=== PATIENT | male | born 1960 | race Two or more races ===

== ENCOUNTER 2024-10-23 23:55 | Inpatient (IN) | payer OTHER, MEDICAID ==
[~2024-10-23] VITALS: Ht 177.8 cm; Wt 60.5 kg
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
[2024-10-24] MEDS: HYDROmorphone HCL 2 MG/ML VL/or syr IM ONE (02:27)
[2024-10-24 02:44] LABS: Basophils # (auto) 0.1 10 ^3/uL (0-0.2); Basophils % (auto) 1.3 % (0.0-2.0); Eosinophils # (auto) 0.4 10 ^3/uL (0-0.8); Eosinophils % (auto) 8.9 % (0.0-7.0); Hematocrit 32.8 % (41.0-53.0); Hemoglobin 11.1 g/dL (13.5-17.5); Lymphocytes # (auto) 0.9 10 ^3/uL (0.4-5.4); Lymphocytes % (auto) 17.8 % (10.0-50.0); Mean Corpuscular Hemoglobin 30.6 pg (28.0-32.0); Mean Corpuscular Hgb Conc. 33.8 g/dL (32.0-36.0); Mean Corpuscular Volume 90.4 fL (80.0-100.0); Monocytes # (auto) 0.5 10 ^3/uL (0-1.3); Monocytes % (auto) 9.8 % (0.0-12.0); Neutrophils # (auto) 3.1 10 ^3/uL (1.6-8.6); Neutrophils % (auto) 62.2 % (37.0-80.0); Platelet Count (auto) 132 10^3/uL (140-450); Red Blood Cells 3.62 10^6/uL (4.5-5.90); Red Cell Distribution Width 13.6 % (11.8-14.3); White Blood Cell 4.9 10^3/uL (4.4-10.8)
[2024-10-24 03:03] LABS: Chloride 103 mmol/L (98-107); Sodium 137 mmol/L (136-145)
[2024-10-24 03:04] LABS: Anion Gap 11 (5-15); Carbon Dioxide 23 mmol/L (20-31)
[2024-10-24 03:09] LABS: BUN/Creatinine Ratio 10.6 (10.0-20.0); Blood Urea Nitrogen 12 mg/dL (9-23); Glucose 92 mg/dL (74-106)
[2024-10-24 03:37] LABS: Calcium 10.4 mg/dL (8.7-10.4)
[2024-10-24 05:15] VITALS: PULSE 80; RESP 16; O2SAT 95
[2024-10-24] MEDS ORDERED: ONDANSETRON HCL 4 MG/2 ML VIAL IV PRN (08:15)
[2024-10-24] MEDS ORDERED: HYDR-4564 PO (08:16)
[2024-10-24] MEDS ORDERED: FURO20TA4 PO (08:16)
[2024-10-24] MEDS ORDERED: PANT40T PO (08:16)
[2024-10-24] MEDS ORDERED: GABA-1250 PO (08:16)
[2024-10-24] MEDS ORDERED: SPIR25TA8 PO (08:16)
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
[2024-10-24] MEDS: HYDROcodone-ACET 10/325MG TAB PO ONE (08:28)
[2024-10-24] MEDS: FUROSEMIDE 20 MG TAB PO SCH (10:00)
[2024-10-24 10:44] LABS: Hepatitis A Ab IgM Negative; Hepatitis B Core IgM Negative (Negative); Hepatitis B Surface Antigen Negative (Negative); Hepatitis C Antibody Negative (Negative)
[2024-10-24] MEDS: PANTOPRAZOLE 40 MG TAB PO SCH (10:58)
[2024-10-24] MEDS: ENOXAPARIN SOD 40 MG/0.4 ML SYRINGE SC SCH (10:58)
[2024-10-24] MEDS: SPIRONOLACTONE 25 MG TAB PO SCH (10:59)
[2024-10-24] MEDS: HYDROmorphone HCL 2 MG TAB PO PRN (10:59)
[2024-10-24] MEDS: GABAPENTIN 300 MG CAP PO SCH (14:41)
[2024-10-24 15:57] LABS: Total Protein 6.7 g/dL (5.7-8.2)
[2024-10-24 16:16] LABS: Alkaline Phosphatase 108 U/L (46-116); Aspartate Aminotransferase 20 U/L (13-40)
[2024-10-24 16:19] LABS: INR 1.31 (0.9-1.15); Prothrombin Time 13.5 sec (9.3-11.8)
[2024-10-24 16:29] LABS: Alanine Aminotransferase < 9 U/L (7-40)
[2024-10-24] MEDS: HYDROcodone-ACET 10/325MG TAB PO PRN (17:19)
[2024-10-24 18:50] VITALS: BP 138/79; PULSE 84; RESP 18; TEMP 98.3; O2SAT 97
[2024-10-24 19:14] LABS: Urine Bacteria FEW /hpf (None Seen); Urine Blood Negative /uL (Negative); Urine Clarity Clear (Clear); Urine Color Yellow (Yellow); Urine Protein, UAD Negative (Negative); Urine Specific Gravity 1.018 (1.001-1.035); Urine Squamous Epithelial Cell None Seen /hpf (<5); Urine Urobilinogen 2 mg/dL (Negative); Urine WBC 1 /HPF (0-3); Urine pH 6.5 (5.0-9.0)
[2024-10-24 21:00] VITALS: BP 129/69; PULSE 79; RESP 18; TEMP 97.9; O2SAT 97
[2024-10-24 21:23] VITALS: BP 138/79; PULSE 79; PULSE 84; RESP 18; TEMP 98.3; O2SAT 97
[2024-10-24] MEDS ORDERED: HYDR-4798 PO (23:34)
[2024-10-25] VITALS (8 sets, daily range): BP systolic 115–144; BP diastolic 64–79; PULSE 74–86; RESP 17–18; TEMP 97.7–98.5; O2SAT 95–97
[2024-10-25 06:36] LABS: Albumin 3.6 g/dL (3.2-4.8); Alkaline Phosphatase 99 U/L (46-116); Anion Gap 9 (5-15); Aspartate Aminotransferase 22 U/L (13-40); BUN/Creatinine Ratio 8.6 (10.0-20.0); Blood Urea Nitrogen 10 mg/dL (9-23); Calcium 10.3 mg/dL (8.7-10.4); Carbon Dioxide 21 mmol/L (20-31); Chloride 104 mmol/L (98-107); Potassium 4.5 mmol/L (3.5-5.1); Total Protein 7.1 g/dL (5.7-8.2)
[2024-10-25 06:38] LABS: Alanine Aminotransferase < 9 U/L (7-40); Glucose 114 mg/dL (74-106); Sodium 134 mmol/L (136-145)
[2024-10-25 08:59] LABS: Basophils # (auto) 0.1 10 ^3/uL (0-0.2); Basophils % (auto) 1.6 % (0.0-2.0); Eosinophils # (auto) 0.3 10 ^3/uL (0-0.8); Eosinophils % (auto) 9.3 % (0.0-7.0); Hematocrit 34.5 % (41.0-53.0); Hemoglobin 11.5 g/dL (13.5-17.5); Lymphocytes # (auto) 0.8 10 ^3/uL (0.4-5.4); Lymphocytes % (auto) 20.2 % (10.0-50.0); Mean Corpuscular Hemoglobin 30.9 pg (28.0-32.0); Mean Corpuscular Hgb Conc. 33.3 g/dL (32.0-36.0); Mean Corpuscular Volume 92.8 fL (80.0-100.0); Monocytes # (auto) 0.4 10 ^3/uL (0-1.3); Monocytes % (auto) 10.9 % (0.0-12.0); Neutrophils # (auto) 2.2 10 ^3/uL (1.6-8.6); Nucleated Red Blood Cells % 0.1 %; Platelet Count (auto) 109 10^3/uL (140-450); Red Blood Cells 3.72 10^6/uL (4.5-5.90); Red Cell Distribution Width 14.2 % (11.8-14.3); White Blood Cell 3.8 10^3/uL (4.4-10.8)
--- NOTE | 2024-10-25 09:51 | DVHPN2 ---
Subjective Patient continues to report having chronic neck and back pain as well as left hand pain. Reviewed: Care Plan, H&P, Labs, Medications Changes from previous H/P or p: No Changes General: Per HPI Musculoskeletal: other (Body pain), back pain Objective Vitals Vital Signs Date Time Temp Pulse Resp B/P (MAP) Pulse Ox O2 Delivery O2 Flow Rate FiO2 10/25/24 08:30 98.5 74 18 117/64 (81) 96 98.5 10/24/24 21:23 Room Air* 0 21 Intake/Output Intake and Output 10/25/24 07:00 Intake Total 250 ml Output Total 800 ml Balance -550 ml Intake Oral 250 ml Output Urine Total 800 ml General Appearance: Alert, Oriented X3, Cooperative, mild distress HEENT: Atraumatic, PERRLA Lungs: Clear to auscultation, Normal air movement Cardiovascular: Normal S1, Normal S2 Abdomen: Normal bowel sounds, Soft, No tenderness, No hepatospenomegaly, No masses Musculoskeletal: Normal sensory function, Normal motor function Neuro: Normal speech Skin: Dry, Intact Psych/Mental Status: Mental status NL, Mood NL Medications Current Medications Medications Dose Ordered Sig/Malvin Route Start Time Stop Time Status Last Admin Dose Admin Ondansetron HCl 4 mg Q4HP PRN IV 10/24/24 08:15 Furosemide 20 mg DAILY PO 10/24/24 10:00 Gabapentin 300 mg TID PO 10/24/24 14:00 10/25/24 05:11 300 MG Hydromorphone HCl 2 mg [id number] PRN PO 10/24/24 08:15 10/25/24 06:05 2 MG Pantoprazole Sodium 40 mg DAILY PO 10/24/24 10:00 10/25/24 09:10 40 MG Spironolactone 25 mg BIDD PO 10/24/24 10:00 10/25/24 05:12 25 MG Acetaminophen/ Hydrocodone Bitart 1 tab Q4HP PRN PO 10/24/24 08:30 10/25/24 09:10 1 TAB Laboratory Results Laboratory Tests 10/25/24 05:50 10/25/24 08:33 Chemistry Test 10/24/24 15:25 10/25/24 05:50 Total Protein 6.7 g/dL (5.7-8.2) 7.1 g/dL (5.7-8.2) Albumin 3.6 g/dL (3.2-4.8) Calcium Level 10.3 mg/dL (8.7-10.4) Coagulation Test 10/24/24 15:25 Prothrombin Time 13.5 sec (9.3-11.8) H Prothrombin Time INR 1.31 (0.9-1.15) H LFT Test 10/24/24 15:25 10/25/24 05:50 Alanine Aminotransferase (ALT) < 9 U/L (7-40) < 9 U/L (7-40) Alkaline Phosphatase 108 U/L (46-116) 99 U/L (46-116) Aspartate Amino Transferase (AST) 20 U/L (13-40) 22 U/L (13-40) Total Bilirubin 1.0 mg/dL (0.2-1.0) 1.0 mg/dL (0.2-1.0) Urinalysis Test 10/24/24 16:59 Urine Color Yellow (Yellow) Urine Clarity Clear (Clear) Urine pH 6.5 (5.0-9.0) Urine Specific [place] 1.018 (1.001-1.035) Urine Protein Negative (Negative) Urine Ketones Trace (Negative) Urine Blood Negative /uL (Negative) Urine Nitrite Negative (Negative) Urine Bilirubin Negative (Negative) Urine Urobilinogen 2 mg/dL (Negative) H Urine Leukocyte Esterase Negative /uL (Negative) Urine RBC <1 /hpf (0 - 3) Urine Microscopic WBC 1 /HPF (0-3) Urine Squamous Epithelial Cells None seen /hpf (<5) Urine Bacteria Few /hpf (None Seen) H Urine Glucose Normal mg/dL (Normal) Labs and/or images reviewed: Labs reviewed by me, Image(s) reviewed by me Assessment/Plan Assessment/Plan Impression: -chronic neck and back pain -cachexia -left hand fracture,? -pain seeking behavior with chronic narcotic use Plan: Social service consultation for assistance with discharge planning Pain management PT evaluation Total time spent with patient discussing and formulating plan of care: 35 minutes. This medical document was created using an electronic medical record system with [employer] system. Although this document has been carefully reviewed, there may still be some phonetic and typographical errors. These areas are purely typographical due to imperfections of the software programs, and do not reflect any compromise in the patient's medical care. Plan discussed with: Patient, Other (RN) My Orders Orders - NORBERTO HURT NP Procedure Category Date Status Time * [employer] Attendant CONS 10/25/24 Verified Consult Pt Request For Service PT 10/25/24 Verified 09:47 Date of Service: Oct 25, 2024 Billing Provider: NORBERTO HURT NP Common Visit Codes: [id number] INP/OBS CARE(HIGH) NORBERTO HURT NP Oct 25, 2024 09:51
[2024-10-25 15:50] LABS: Amphetamine Screen, Urine Neg (NEGATIVE); Barbiturate Scree,Urine Neg (NEGATIVE); Benzodiazephine Screen, Urine Neg (NEGATIVE); Cannabinoid Screen, Urine Neg (NEGATIVE); Cocaine Screen, Urine Neg (NEGATIVE); Opiate Scree,Urine Pos (NEGATIVE); Phencyclidine Screen, Urine Neg (NEGATIVE)
[2024-10-26] VITALS (7 sets, daily range): BP systolic 100–131; BP diastolic 57–70; PULSE 75–83; RESP 16–18; TEMP 97.9–98.6; O2SAT 94–96
[2024-10-26] MEDS: OXYCODONE W/ ACETAMINOPHEN 5/325MG TABLET PO PRN (10:47)
--- NOTE | 2024-10-26 15:50 | DVHPN2 ---
Subjective Patient continues to report having chronic neck and back pain as well as left hand pain. Reviewed: Care Plan, H&P, Labs, Medications Changes from previous H/P or p: No Changes General: Per HPI Musculoskeletal: other (Body pain), back pain Objective Vitals Vital Signs Date Time Temp Pulse Resp B/P (MAP) Pulse Ox O2 Delivery O2 Flow Rate FiO2 10/26/24 13:30 98.1 80 17 115/65 (82) 96 98.1 10/26/24 08:30 Room Air* 0 21 Intake/Output Intake and Output 10/26/24 07:00 Intake Total 1490 ml Output Total 1000 ml Balance 490 ml Intake Oral 1490 ml Output Urine Total 1000 ml General Appearance: Alert, Oriented X3, Cooperative, mild distress HEENT: Atraumatic, PERRLA Lungs: Clear to auscultation, Normal air movement Cardiovascular: Normal S1, Normal S2 Abdomen: Normal bowel sounds, Soft, No tenderness, No hepatospenomegaly, No masses Musculoskeletal: Normal sensory function, Normal motor function Neuro: Normal speech Skin: Dry, Intact Psych/Mental Status: Mental status NL, Mood NL Medications Current Medications Medications Dose Ordered Sig/Malvin Route Start Time Stop Time Status Last Admin Dose Admin Ondansetron HCl 4 mg Q4HP PRN IV 10/24/24 08:15 Furosemide 20 mg DAILY PO 10/24/24 10:00 Gabapentin 300 mg TID PO 10/24/24 14:00 10/26/24 13:40 300 MG Pantoprazole Sodium 40 mg DAILY PO 10/24/24 10:00 10/26/24 08:27 40 MG Spironolactone 25 mg BIDD PO 10/24/24 10:00 10/26/24 05:12 25 MG Acetaminophen/ Hydrocodone Bitart 1 tab Q4HP PRN PO 10/24/24 08:30 10/26/24 15:32 1 TAB Oxycodone/ Acetaminophen 2 tab Q8HPRN PRN PO 10/26/24 10:30 10/26/24 10:47 2 TAB Mupirocin 1 applic BID EACHNOSTRI 10/26/24 22:00 10/31/24 21:59 UNV Laboratory Results Laboratory Tests 10/25/24 05:50 10/25/24 08:33 Urinalysis Test 10/24/24 16:59 Urine Color Yellow (Yellow) Urine Clarity Clear (Clear) Urine pH 6.5 (5.0-9.0) Urine Specific [place] 1.018 (1.001-1.035) Urine Protein Negative (Negative) Urine Ketones Trace (Negative) Urine Blood Negative /uL (Negative) Urine Nitrite Negative (Negative) Urine Bilirubin Negative (Negative) Urine Urobilinogen 2 mg/dL (Negative) H Urine Leukocyte Esterase Negative /uL (Negative) Urine RBC <1 /hpf (0 - 3) Urine Microscopic WBC 1 /HPF (0-3) Urine Squamous Epithelial Cells None seen /hpf (<5) Urine Bacteria Few /hpf (None Seen) H Urine Glucose Normal mg/dL (Normal) Microbiology Microbiology Date/Time Source Procedure Growth Status 10/24/24 21:30 Nose MRSA Screen - Final Methicillin Resistant S.aureus Complete Labs and/or images reviewed: Labs reviewed by me, Image(s) reviewed by me Assessment/Plan Assessment/Plan Impression: -chronic neck and back pain -cachexia -left hand fracture,? -pain seeking behavior with chronic narcotic use Plan: Events: Patient now complaining of deformity to his back. Discussed with the patient that he has multiple scars with the patient reporting that he was spinal surgery. We will continue to monitor. Possibly order CT scan if it continues to bother him. Social service consultation for snf placement. Pain management PT evaluation Total time spent with patient discussing and formulating plan of care: 35 minutes. This medical document was created using an electronic medical record system with [employer] dictation system. Although this document has been carefully reviewed, there may still be some phonetic and typographical errors. These areas are purely typographical due to imperfections of the software programs, and do not reflect any compromise in the patient's medical care. Plan discussed with: Patient, Other (RN) My Orders Orders - NORBERTO HURT NP Procedure Category Date Status Time Oxycodone W/ Acet PHA 10/26/24 In Process 5/325mg Tab (Percocet 10:30 * Private Security Guard CONS 10/26/24 Transmitted Consult Mupirocin 2% Oint PHA 10/26/24 Logged Mrsa Nares (Bactroban 22:00 Date of Service: Oct 26, 2024 Billing Provider: NORBERTO HURT NP Common Visit Codes: [id number] INP/OBS CARE(HIGH) NORBERTO HURT RN MED SURG Oct 26, 2024 15:50
[2024-10-26] MEDS: MUPIROCIN 2% OINT 15gm or 22gm FOR MRSA NARES EACHNOSTRI SCH (22:35)
[2024-10-27] VITALS (7 sets, daily range): BP systolic 100–132; BP diastolic 60–77; PULSE 76–90; RESP 16–20; TEMP 97.9–98.7; O2SAT 94–96
--- NOTE | 2024-10-27 13:18 | DVHPN2 ---
Subjective Patient continues to report having chronic neck and back pain as well as left hand pain. Reviewed: Care Plan, H&P, Labs, Medications Changes from previous H/P or p: No Changes General: Per HPI Musculoskeletal: other (Body pain), back pain Objective Vitals Vital Signs Date Time Temp Pulse Resp B/P (MAP) Pulse Ox O2 Delivery O2 Flow Rate FiO2 10/27/24 10:00 121/70 10/27/24 09:00 97.9 76 16 95 97.9 10/27/24 08:00 Room Air* 0 21 Intake/Output Intake and Output 10/27/24 07:00 Intake Total 1460 ml Output Total 1400 ml Balance 60 ml Intake Oral 1460 ml Output Urine Total 1400 ml General Appearance: Alert, Oriented X3, Cooperative, mild distress HEENT: Atraumatic, PERRLA Lungs: Clear to auscultation, Normal air movement Cardiovascular: Normal S1, Normal S2 Abdomen: Normal bowel sounds, Soft, No tenderness, No hepatospenomegaly, No masses Musculoskeletal: Normal sensory function, Normal motor function Neuro: Normal speech Skin: Dry, Intact Psych/Mental Status: Mental status NL, Mood NL Medications Current Medications Medications Dose Ordered Sig/Malvin Route Start Time Stop Time Status Last Admin Dose Admin Ondansetron HCl 4 mg Q4HP PRN IV 10/24/24 08:15 Furosemide 20 mg DAILY PO 10/24/24 10:00 Gabapentin 300 mg TID PO 10/24/24 14:00 10/27/24 05:25 300 MG Pantoprazole Sodium 40 mg DAILY PO 10/24/24 10:00 10/27/24 10:14 40 MG Spironolactone 25 mg BIDD PO 10/24/24 10:00 10/27/24 05:25 25 MG Acetaminophen/ Hydrocodone Bitart 1 tab Q4HP PRN PO 10/24/24 08:30 10/27/24 13:13 1 TAB Oxycodone/ Acetaminophen 2 tab Q8HPRN PRN PO 10/26/24 10:30 10/26/24 10:47 2 TAB Mupirocin 1 applic BID EACHNOSTRI 10/26/24 22:00 10/31/24 21:59 10/27/24 10:00 1 APPLIC Laboratory Results Laboratory Tests 10/25/24 05:50 10/25/24 08:33 Urinalysis Test 10/24/24 16:59 Urine Color Yellow (Yellow) Urine Clarity Clear (Clear) Urine pH 6.5 (5.0-9.0) Urine Specific [place] 1.018 (1.001-1.035) Urine Protein Negative (Negative) Urine Ketones Trace (Negative) Urine Blood Negative /uL (Negative) Urine Nitrite Negative (Negative) Urine Bilirubin Negative (Negative) Urine Urobilinogen 2 mg/dL (Negative) H Urine Leukocyte Esterase Negative /uL (Negative) Urine RBC <1 /hpf (0 - 3) Urine Microscopic WBC 1 /HPF (0-3) Urine Squamous Epithelial Cells None seen /hpf (<5) Urine Bacteria Few /hpf (None Seen) H Urine Glucose Normal mg/dL (Normal) Microbiology Microbiology Date/Time Source Procedure Growth Status 10/24/24 21:30 Nose MRSA Screen - Final Methicillin Resistant S.aureus Complete Labs and/or images reviewed: Labs reviewed by me, Image(s) reviewed by me Assessment/Plan Assessment/Plan Impression: -chronic neck and back pain -cachexia -left hand fracture,? -pain seeking behavior with chronic narcotic use Plan: Events: No events overnight. Social service consultation for snf placement. Pain management PT evaluation Total time spent with patient discussing and formulating plan of care: 35 minutes. This medical document was created using an electronic medical record system with [employer] dictation system. Although this document has been carefully reviewed, there may still be some phonetic and typographical errors. These areas are purely typographical due to imperfections of the software programs, and do not reflect any compromise in the patient's medical care. Plan discussed with: Patient, Other (RN) My Orders Orders - NORBERTO HURT NP Procedure Category Date Status Time Mupirocin 2% Oint PHA 10/26/24 In Process Mrsa Nares (Bactroban 22:00 * Assistant To [employer] [facility] 10/27/24 Transmitted Consult Date of Service: Oct 27, 2024 Billing Provider: NORBERTO HURT NP Common Visit Codes: [id number] INP/OBS CARE(HIGH) NORBERTO HURT NP Oct 27, 2024 13:18
[2024-10-28 01:00] VITALS: BP 116/68; PULSE 82; RESP 19; TEMP 97.8; O2SAT 94
[2024-10-28 05:00] VITALS: BP 114/75; PULSE 87; RESP 18; TEMP 97.6; O2SAT 96
[2024-10-28 09:00] VITALS: BP 126/75; PULSE 89; RESP 16; TEMP 98; O2SAT 94
[2024-10-28 13:00] VITALS: BP 110/78; PULSE 102; RESP 18; TEMP 97.9; O2SAT 94
--- NOTE | 2024-10-28 15:13 | DVHPN2 ---
Subjective Patient was somewhat withdrawn today. Reviewed: Care Plan, H&P, Labs, Medications Changes from previous H/P or p: Changes General: Per HPI Musculoskeletal: other (Body pain), back pain Objective Vitals Vital Signs Date Time Temp Pulse Resp B/P (MAP) Pulse Ox O2 Delivery O2 Flow Rate FiO2 10/28/24 13:00 97.9 102 18 110/78 (89) 94 97.9 10/28/24 08:00 Room Air* 0 21 Intake/Output Intake and Output 10/28/24 07:00 Intake Total 714 ml Output Total 500 ml Balance 214 ml Intake Oral 714 ml Output Urine Total 500 ml # Voids 3 General Appearance: Alert, Oriented X3, Cooperative, mild distress HEENT: Atraumatic, PERRLA Lungs: Clear to auscultation, Normal air movement Cardiovascular: Normal S1, Normal S2 Abdomen: Normal bowel sounds, Soft, No tenderness, No hepatospenomegaly, No masses Musculoskeletal: Normal sensory function, Normal motor function Neuro: Normal speech Skin: Dry, Intact Psych/Mental Status: Mental status NL, Mood NL Medications Current Medications Medications Dose Ordered Sig/Malvin Route Start Time Stop Time Status Last Admin Dose Admin Ondansetron HCl 4 mg Q4HP PRN IV 10/24/24 08:15 Furosemide 20 mg DAILY PO 10/24/24 10:00 Gabapentin 300 mg TID PO 10/24/24 14:00 10/28/24 14:06 300 MG Pantoprazole Sodium 40 mg DAILY PO 10/24/24 10:00 10/28/24 09:02 40 MG Spironolactone 25 mg BIDD PO 10/24/24 10:00 10/28/24 06:05 25 MG Acetaminophen/ Hydrocodone Bitart 1 tab Q4HP PRN PO 10/24/24 08:30 10/28/24 06:05 1 TAB Oxycodone/ Acetaminophen 2 tab Q8HPRN PRN PO 10/26/24 10:30 10/26/24 10:47 2 TAB Mupirocin 1 applic BID EACHNOSTRI 10/26/24 22:00 10/31/24 21:59 10/28/24 09:03 1 APPLIC Laboratory Results Laboratory Tests 10/25/24 05:50 10/25/24 08:33 Urinalysis Test 10/24/24 16:59 Urine Color Yellow (Yellow) Urine Clarity Clear (Clear) Urine pH 6.5 (5.0-9.0) Urine Specific [place] 1.018 (1.001-1.035) Urine Protein Negative (Negative) Urine Ketones Trace (Negative) Urine Blood Negative /uL (Negative) Urine Nitrite Negative (Negative) Urine Bilirubin Negative (Negative) Urine Urobilinogen 2 mg/dL (Negative) H Urine Leukocyte Esterase Negative /uL (Negative) Urine RBC <1 /hpf (0 - 3) Urine Microscopic WBC 1 /HPF (0-3) Urine Squamous Epithelial Cells None seen /hpf (<5) Urine Bacteria Few /hpf (None Seen) H Urine Glucose Normal mg/dL (Normal) Microbiology Microbiology Date/Time Source Procedure Growth Status 10/24/24 21:30 Nose MRSA Screen - Final Methicillin Resistant S.aureus Complete Labs and/or images reviewed: Labs reviewed by me, Image(s) reviewed by me Assessment/Plan Assessment/Plan Impression: -chronic neck and back pain -cachexia -left hand fracture,? -pain seeking behavior with chronic narcotic use Plan: Events: Patient was noted to be somewhat withdrawn today by nursing staff and with my assessment. -repeat BMP, CBC, UA, ammonia level Social service consultation for snf placement. Pain management PT evaluation Total time spent with patient discussing and formulating plan of care: 35 minutes. This medical document was created using an electronic medical record system with [employer] dictation system. Although this document has been carefully reviewed, there may still be some phonetic and typographical errors. These areas are purely typographical due to imperfections of the software programs, and do not reflect any compromise in the patient's medical care. Plan discussed with: Patient, Other (RN) My Orders Orders - NORBERTO HURT NP Procedure Category Date Status Time Basic Metabolic Panel LAB 10/28/24 Transmitted 15:10 Complete Blood Count LAB 10/28/24 Transmitted 15:10 Urinalysis LAB 10/28/24 Transmitted 15:10 Ammonia LAB 10/28/24 Transmitted 15:10 Date of Service: Oct 28, 2024 Billing Provider: NORBERTO HURT NP Common Visit Codes: [id number] INP/OBS CARE(HIGH) NORBERTO HURT NP Oct 28, 2024 15:13
[2024-10-28 16:35] LABS: Basophils # (auto) 0 10 ^3/uL (0-0.2); Basophils % (auto) 0.7 % (0.0-2.0); Eosinophils # (auto) 0.2 10 ^3/uL (0-0.8); Eosinophils % (auto) 5.1 % (0.0-7.0); Hematocrit 38.8 % (41.0-53.0); Hemoglobin 12.5 g/dL (13.5-17.5); Lymphocytes # (auto) 0.7 10 ^3/uL (0.4-5.4); Lymphocytes % (auto) 15.1 % (10.0-50.0); Mean Corpuscular Hemoglobin 29.6 pg (28.0-32.0); Mean Corpuscular Hgb Conc. 32.3 g/dL (32.0-36.0); Mean Corpuscular Volume 91.8 fL (80.0-100.0); Monocytes # (auto) 0.6 10 ^3/uL (0-1.3); Monocytes % (auto) 12.5 % (0.0-12.0); Neutrophils # (auto) 3.2 10 ^3/uL (1.6-8.6); Neutrophils % (auto) 66.6 % (37.0-80.0); Nucleated Red Blood Cells % 0.1 %; Platelet Count (auto) 149 10^3/uL (140-450); Red Blood Cells 4.23 10^6/uL (4.5-5.90); Red Cell Distribution Width 14.1 % (11.8-14.3); White Blood Cell 4.9 10^3/uL (4.4-10.8)
[2024-10-28 16:55] LABS: Chloride 105 mmol/L (98-107); Potassium 4.2 mmol/L (3.5-5.1); Sodium 138 mmol/L (136-145)
[2024-10-28 16:56] LABS: Anion Gap 10 (5-15); Carbon Dioxide 23 mmol/L (20-31)
[2024-10-28 17:00] VITALS: BP 149/84; PULSE 97; RESP 18; TEMP 98; O2SAT 96
[2024-10-28 17:02] LABS: BUN/Creatinine Ratio 12.4 (10.0-20.0); Blood Urea Nitrogen 16 mg/dL (9-23)
[2024-10-28 17:22] LABS: Calcium 10.6 mg/dL (8.7-10.4); Glucose 123 mg/dL (74-106)
[2024-10-28] MEDS: LACTULOSE 20Gm/30ML SOLN PO ONE (18:48)
[2024-10-28 21:00] VITALS: BP 123/71; PULSE 85; RESP 18; TEMP 97.9; O2SAT 95
[2024-10-28 21:31] LABS: Urine Bacteria None Seen /hpf (None Seen)
[2024-10-28 21:55] LABS: Urine Blood Negative /uL (Negative); Urine Clarity Clear (Clear); Urine Color Light-Yellow (Yellow); Urine Hyaline Cast FEW /lpf (0 - 2); Urine Mucus FEW (None Seen); Urine Protein, UAD Negative (Negative); Urine Specific Gravity 1.018 (1.001-1.035); Urine Squamous Epithelial Cell FEW /hpf (<5); Urine Urobilinogen Normal (Negative); Urine WBC 1 /HPF (0-3)
[2024-10-29 01:00] VITALS: BP 109/65; PULSE 84; RESP 18; TEMP 98; O2SAT 96
[2024-10-29 05:00] VITALS: BP 107/68; PULSE 82; RESP 18; TEMP 97.8; O2SAT 97
[2024-10-29 09:00] VITALS: BP 109/69; PULSE 80; RESP 17; TEMP 98.1; O2SAT 93
[2024-10-29] MEDS: LACTULOSE 20Gm/30ML SOLN PO SCH (12:06)
--- NOTE | 2024-10-29 12:53 | DVHPN2 ---
Subjective Patient more alert today. Reviewed: Care Plan, H&P, Labs, Medications Changes from previous H/P or p: Changes General: Per HPI Musculoskeletal: other (Body pain), back pain Objective Vitals Vital Signs Date Time Temp Pulse Resp B/P (MAP) Pulse Ox O2 Delivery O2 Flow Rate FiO2 10/29/24 09:00 98.1 80 17 109/69 (82) 93 98.1 10/29/24 08:00 Room Air* 0 21 Intake/Output Intake and Output 10/29/24 07:00 Intake Total 780 ml Output Total 550 ml Balance 230 ml Intake Oral 780 ml Output Urine Total 550 ml # Voids 1 # Bowel Movements 2 General Appearance: Alert, Oriented X3, Cooperative, mild distress HEENT: Atraumatic, PERRLA Lungs: Clear to auscultation, Normal air movement Cardiovascular: Normal S1, Normal S2 Abdomen: Normal bowel sounds, Soft, No tenderness, No hepatospenomegaly, No masses Musculoskeletal: Normal sensory function, Normal motor function Neuro: Normal speech Skin: Dry, Intact Psych/Mental Status: Mental status NL, Mood NL Medications Current Medications Medications Dose Ordered Sig/Malvin Route Start Time Stop Time Status Last Admin Dose Admin Ondansetron HCl 4 mg Q4HP PRN IV 10/24/24 08:15 Furosemide 20 mg DAILY PO 10/24/24 10:00 Gabapentin 300 mg TID PO 10/24/24 14:00 10/29/24 06:13 300 MG Pantoprazole Sodium 40 mg DAILY PO 10/24/24 10:00 10/29/24 09:25 40 MG Spironolactone 25 mg BIDD PO 10/24/24 10:00 10/29/24 06:13 25 MG Acetaminophen/ Hydrocodone Bitart 1 tab Q4HP PRN PO 10/24/24 08:30 10/29/24 11:57 1 TAB Oxycodone/ Acetaminophen 2 tab Q8HPRN PRN PO 10/26/24 10:30 10/26/24 10:47 2 TAB Mupirocin 1 applic BID EACHNOSTRI 10/26/24 22:00 10/31/24 21:59 10/29/24 09:26 1 APPLIC Lactulose 30 ml BID PO 10/29/24 11:45 10/29/24 12:06 30 ML Laboratory Results Laboratory Tests 10/28/24 16:17 Chemistry Test 10/28/24 16:17 Calcium Level 10.6 mg/dL (8.7-10.4) H Urinalysis Test 10/28/24 19:20 Urine Color Light-yellow (Yellow) Urine Clarity Clear (Clear) Urine pH 7.0 (5.0-9.0) Urine Specific [place] 1.018 (1.001-1.035) Urine Protein Negative (Negative) Urine Ketones Negative (Negative) Urine Blood Negative /uL (Negative) Urine Nitrite Negative (Negative) Urine Bilirubin Negative (Negative) Urine Urobilinogen Normal mg/dL (Negative) Urine Leukocyte Esterase Negative /uL (Negative) Urine RBC 10 /hpf (0 - 3) Urine Microscopic WBC 1 /HPF (0-3) Urine Squamous Epithelial Cells Few /hpf (<5) Urine Bacteria None seen /hpf (None Seen) Urine Hyaline Casts Few /lpf (0 - 2) Urine Mucus Few (None Seen) Urine Glucose Normal mg/dL (Normal) Microbiology Microbiology Date/Time Source Procedure Growth Status 10/24/24 21:30 Nose MRSA Screen - Final Methicillin Resistant S.aureus Complete Labs and/or images reviewed: Labs reviewed by me, Image(s) reviewed by me Assessment/Plan Assessment/Plan Impression: -chronic neck and back pain -cachexia -left hand fracture,? -pain seeking behavior with chronic narcotic use -encephalopathy Plan: Events: -labs from yesterday afternoon reviewed. Patient was noted to elevated ammonia level, with one dose of lactulose provided with ammonia level repeating 70. -start lactulose daily. -Social service consultation for snf placement. -Pain management -PT evaluation Total time spent with patient discussing and formulating plan of care: 35 minutes. This medical document was created using an electronic medical record system with [employer] dictation system. Although this document has been carefully reviewed, there may still be some phonetic and typographical errors. These areas are purely typographical due to imperfections of the software programs, and do not reflect any compromise in the patient's medical care. Plan discussed with: Patient, Other (RN) My Orders Orders - NORBETRO HURT NP Procedure Category Date Status Time Lactulose Oral PHA 10/29/24 In Process 11:45 Ammonia LAB 10/30/24 Verified 04:00 Comprehensive LAB 10/30/24 Verified Metabolic Panel 04:00 Date of Service: Oct 29, 2024 Billing Provider: NORBERTO HURT NP Common Visit Codes: [id number] INP/OBS CARE(HIGH) NORBERTO HURT NP Oct 29, 2024 12:53
[2024-10-29 13:00] VITALS: BP 127/76; PULSE 89; RESP 16; TEMP 98.3; O2SAT 92
[2024-10-29 17:01] VITALS: BP 136/77; PULSE 89; RESP 16; TEMP 98.1; O2SAT 95
[2024-10-29 21:00] VITALS: BP 127/71; PULSE 84; RESP 17; TEMP 98.4; O2SAT 94
[2024-10-30] VITALS (8 sets, daily range): BP systolic 109–136; BP diastolic 66–75; PULSE 74–90; RESP 16–20; TEMP 97.8–98.6; O2SAT 92–98
[2024-10-30 06:33] LABS: Albumin 3.8 g/dL (3.2-4.8); Alkaline Phosphatase 89 U/L (46-116); Anion Gap 11 (5-15); Aspartate Aminotransferase 17 U/L (13-40); BUN/Creatinine Ratio 12.5 (10.0-20.0); Blood Urea Nitrogen 15 mg/dL (9-23); Chloride 107 mmol/L (98-107); Glucose 105 mg/dL (74-106); Potassium 3.9 mmol/L (3.5-5.1); Sodium 137 mmol/L (136-145); Total Protein 7.2 g/dL (5.7-8.2)
[2024-10-30 06:34] LABS: Alanine Aminotransferase < 9 U/L (7-40); Bilirubin, Total 0.9 mg/dL (0.2-1.0); Carbon Dioxide 19 mmol/L (20-31)
--- NOTE | 2024-10-30 08:34 | DVHPN2 ---
Subjective Patient was alert, denies any symptoms. Reviewed: Care Plan, H&P, Labs, Medications Changes from previous H/P or p: No Changes General: Per HPI Musculoskeletal: other (Body pain), back pain Objective Vitals Vital Signs Date Time Temp Pulse Resp B/P (MAP) Pulse Ox O2 Delivery O2 Flow Rate FiO2 10/30/24 05:00 98.3 75 16 117/70 (86) 95 98.3 10/29/24 20:00 Room Air* 0 21 Intake/Output Intake and Output 10/30/24 07:00 Intake Total 1800 ml Balance 1800 ml Intake Oral 1800 ml General Appearance: Alert, Oriented X3, Cooperative, mild distress HEENT: Atraumatic, PERRLA Lungs: Clear to auscultation, Normal air movement Cardiovascular: Normal S1, Normal S2 Abdomen: Normal bowel sounds, Soft, No tenderness, No hepatospenomegaly, No masses Musculoskeletal: Normal sensory function, Normal motor function Neuro: Normal speech Skin: Dry, Intact Psych/Mental Status: Mental status NL, Mood NL Medications Current Medications Medications Dose Ordered Sig/Malvin Route Start Time Stop Time Status Last Admin Dose Admin Ondansetron HCl 4 mg Q4HP PRN IV 10/24/24 08:15 Furosemide 20 mg DAILY PO 10/24/24 10:00 Gabapentin 300 mg TID PO 10/24/24 14:00 10/30/24 05:03 300 MG Pantoprazole Sodium 40 mg DAILY PO 10/24/24 10:00 10/29/24 09:25 40 MG Spironolactone 25 mg BIDD PO 10/24/24 10:00 10/30/24 05:02 25 MG Acetaminophen/ Hydrocodone Bitart 1 tab Q4HP PRN PO 10/24/24 08:30 10/30/24 05:03 1 TAB Oxycodone/ Acetaminophen 2 tab Q8HPRN PRN PO 10/26/24 10:30 10/29/24 19:02 2 TAB Mupirocin 1 applic BID EACHNOSTRI 10/26/24 22:00 10/31/24 21:59 10/29/24 21:16 1 APPLIC Lactulose 30 ml BID PO 10/29/24 11:45 10/29/24 21:14 30 ML Laboratory Results Laboratory Tests 10/28/24 16:17 10/30/24 04:54 Chemistry Test 10/30/24 04:54 Albumin 3.8 g/dL (3.2-4.8) Calcium Level 10.0 mg/dL (8.7-10.4) Total Protein 7.2 g/dL (5.7-8.2) LFT Test 10/30/24 04:54 Alanine Aminotransferase (ALT) < 9 U/L (7-40) Alkaline Phosphatase 89 U/L (46-116) Aspartate Amino Transferase (AST) 17 U/L (13-40) Total Bilirubin 0.9 mg/dL (0.2-1.0) Urinalysis Test 10/28/24 19:20 Urine Color Light-yellow (Yellow) Urine Clarity Clear (Clear) Urine pH 7.0 (5.0-9.0) Urine Specific [place] 1.018 (1.001-1.035) Urine Protein Negative (Negative) Urine Ketones Negative (Negative) Urine Blood Negative /uL (Negative) Urine Nitrite Negative (Negative) Urine Bilirubin Negative (Negative) Urine Urobilinogen Normal mg/dL (Negative) Urine Leukocyte Esterase Negative /uL (Negative) Urine RBC 10 /hpf (0 - 3) Urine Microscopic WBC 1 /HPF (0-3) Urine Squamous Epithelial Cells Few /hpf (<5) Urine Bacteria None seen /hpf (None Seen) Urine Hyaline Casts Few /lpf (0 - 2) Urine Mucus Few (None Seen) Urine Glucose Normal mg/dL (Normal) Microbiology Microbiology Date/Time Source Procedure Growth Status 10/24/24 21:30 Nose MRSA Screen - Final Methicillin Resistant S.aureus Complete Labs and/or images reviewed: Labs reviewed by me, Image(s) reviewed by me Assessment/Plan Assessment/Plan Impression: -chronic neck and back pain -cachexia -left hand fracture,? -pain seeking behavior with chronic narcotic use -encephalopathy Plan: Events: Events overnight. Patient continues to request more pain medication. Continue current treatment plan until geriatric social worker finds a facility for the patient. -continue lactulose -Social service consultation for snf placement. -Pain management -PT evaluation Total time spent with patient discussing and formulating plan of care: 35 minutes. This medical document was created using an electronic medical record system with [employer] dictation system. Although this document has been carefully reviewed, there may still be some phonetic and typographical errors. These areas are purely typographical due to imperfections of the software programs, and do not reflect any compromise in the patient's medical care. Plan discussed with: Patient, Other (rn) My Orders Orders - NORBERTO HURT NP Procedure Category Date Status Time Lactulose Oral PHA 10/29/24 In Process 11:45 Mrsa Screen GHAZAL 10/30/24 Uncollected 08:31 Date of Service: Oct 30, 2024 Billing Provider: NORBERTO HURT NP Common Visit Codes: [id number] INP/OBS CARE(HIGH) NORBERTO HURT NP Oct 30, 2024 08:34
[2024-10-31] VITALS (8 sets, daily range): BP systolic 103–131; BP diastolic 59–74; PULSE 80–96; RESP 18–20; TEMP 97.7–98.4; O2SAT 92–95
--- NOTE | 2024-10-31 11:49 | DVHPN2 ---
Subjective Patient was alert, denies any symptoms. Reviewed: Care Plan, H&P, Labs, Medications Changes from previous H/P or p: No Changes General: Per HPI Musculoskeletal: other (Body pain), back pain Objective Vitals Vital Signs Date Time Temp Pulse Resp B/P (MAP) Pulse Ox O2 Delivery O2 Flow Rate FiO2 10/31/24 08:41 117/63 10/31/24 08:30 98.3 84 18 92 98.3 10/31/24 08:00 Room Air* 0 21 Intake/Output Intake and Output 10/31/24 07:00 Intake Total 800 ml Output Total 1100 ml Balance -300 ml Intake Oral 800 ml Output Urine Total 1100 ml General Appearance: Alert, Oriented X3, Cooperative, mild distress HEENT: Atraumatic, PERRLA Lungs: Clear to auscultation, Normal air movement Cardiovascular: Normal S1, Normal S2 Abdomen: Normal bowel sounds, Soft, No tenderness, No hepatospenomegaly, No masses Musculoskeletal: Normal sensory function, Normal motor function Neuro: Normal speech Skin: Dry, Intact Psych/Mental Status: Mental status NL, Mood NL Medications Current Medications Medications Dose Ordered Sig/Malvin Route Start Time Stop Time Status Last Admin Dose Admin Ondansetron HCl 4 mg Q4HP PRN IV 10/24/24 08:15 Furosemide 20 mg DAILY PO 10/24/24 10:00 10/31/24 08:41 20 MG Gabapentin 300 mg TID PO 10/24/24 14:00 10/31/24 05:32 300 MG Pantoprazole Sodium 40 mg DAILY PO 10/24/24 10:00 10/31/24 08:40 40 MG Spironolactone 25 mg BIDD PO 10/24/24 10:00 10/31/24 05:32 25 MG Acetaminophen/ Hydrocodone Bitart 1 tab Q4HP PRN PO 10/24/24 08:30 10/31/24 06:12 1 TAB Oxycodone/ Acetaminophen 2 tab Q8HPRN PRN PO 10/26/24 10:30 10/30/24 11:31 2 TAB Mupirocin 1 applic BID EACHNOSTRI 10/26/24 22:00 10/31/24 21:59 10/31/24 08:41 1 APPLIC Lactulose 30 ml BID PO 10/29/24 11:45 10/31/24 08:39 30 ML Laboratory Results Laboratory Tests 10/28/24 16:17 10/30/24 04:54 Urinalysis Test 10/28/24 19:20 Urine Color Light-yellow (Yellow) Urine Clarity Clear (Clear) Urine pH 7.0 (5.0-9.0) Urine Specific [place] 1.018 (1.001-1.035) Urine Protein Negative (Negative) Urine Ketones Negative (Negative) Urine Blood Negative /uL (Negative) Urine Nitrite Negative (Negative) Urine Bilirubin Negative (Negative) Urine Urobilinogen Normal mg/dL (Negative) Urine Leukocyte Esterase Negative /uL (Negative) Urine RBC 10 /hpf (0 - 3) Urine Microscopic WBC 1 /HPF (0-3) Urine Squamous Epithelial Cells Few /hpf (<5) Urine Bacteria None seen /hpf (None Seen) Urine Hyaline Casts Few /lpf (0 - 2) Urine Mucus Few (None Seen) Urine Glucose Normal mg/dL (Normal) Microbiology Microbiology Date/Time Source Procedure Growth Status 10/24/24 21:30 Nose MRSA Screen - Final Methicillin Resistant S.aureus Complete Labs and/or images reviewed: Labs reviewed by me, Image(s) reviewed by me Assessment/Plan Assessment/Plan Impression: -chronic neck and back pain -cachexia -left hand fracture,? -pain seeking behavior with chronic narcotic use -encephalopathy Plan: Events: Events overnight. Patient continues to request more pain medication. Continue current treatment plan until oncology social work finds a facility for the patient. No change in a/P on 10/31/2024 -continue lactulose -Social service consultation for snf placement. -Pain management -PT evaluation Total time spent with patient discussing and formulating plan of care: 35 minutes. This medical document was created using an electronic medical record system with [employer] dictation system. Although this document has been carefully reviewed, there may still be some phonetic and typographical errors. These areas are purely typographical due to imperfections of the software programs, and do not reflect any compromise in the patient's medical care. Plan discussed with: Patient, Other (RN) Date of Service: Oct 31, 2024 Billing Provider: NORBERTO HURT NP Common Visit Codes: [id number] INP/OBS CARE(HIGH) NORBERTO HURT NP Oct 31, 2024 11:49
[2024-11-01] VITALS (7 sets, daily range): BP systolic 116–138; BP diastolic 67–79; PULSE 77–86; RESP 16–18; TEMP 97.9–98.7; O2SAT 95–98
--- NOTE | 2024-11-01 09:27 | DVHPN2 ---
Subjective Patient was alert, denies any symptoms. Reviewed: Care Plan, H&P, Labs, Medications Changes from previous H/P or p: No Changes General: Per HPI Musculoskeletal: other (Body pain), back pain Objective Vitals Vital Signs Date Time Temp Pulse Resp B/P (MAP) Pulse Ox O2 Delivery O2 Flow Rate FiO2 11/01/24 09:00 98.7 82 16 125/67 (86) 95 98.7 10/31/24 20:02 Room Air* 0 21 Intake/Output Intake and Output 11/01/24 07:00 Intake Total 1880 ml Output Total 1100 ml Balance 780 ml Intake Oral 1880 ml Output Urine Total 1100 ml # Bowel Movements 2 General Appearance: Alert, Oriented X3, Cooperative, mild distress HEENT: Atraumatic, PERRLA Lungs: Clear to auscultation, Normal air movement Cardiovascular: Normal S1, Normal S2 Abdomen: Normal bowel sounds, Soft, No tenderness, No hepatospenomegaly, No masses Musculoskeletal: Normal sensory function, Normal motor function Neuro: Normal speech Skin: Dry, Intact Psych/Mental Status: Mental status NL, Mood NL Medications Current Medications Medications Dose Ordered Sig/Malvin Route Start Time Stop Time Status Last Admin Dose Admin Ondansetron HCl 4 mg Q4HP PRN IV 10/24/24 08:15 Furosemide 20 mg DAILY PO 10/24/24 10:00 10/31/24 08:41 20 MG Gabapentin 300 mg TID PO 10/24/24 14:00 11/01/24 06:35 300 MG Pantoprazole Sodium 40 mg DAILY PO 10/24/24 10:00 10/31/24 08:40 40 MG Spironolactone 25 mg BIDD PO 10/24/24 10:00 10/31/24 18:00 25 MG Acetaminophen/ Hydrocodone Bitart 1 tab Q4HP PRN PO 10/24/24 08:30 11/01/24 06:37 1 TAB Oxycodone/ Acetaminophen 2 tab Q8HPRN PRN PO 10/26/24 10:30 10/30/24 11:31 2 TAB Lactulose 30 ml BID PO 10/29/24 11:45 10/31/24 13:58 30 ML Laboratory Results Laboratory Tests 10/28/24 16:17 10/30/24 04:54 Urinalysis Test 10/28/24 19:20 Urine Color Light-yellow (Yellow) Urine Clarity Clear (Clear) Urine pH 7.0 (5.0-9.0) Urine Specific [place] 1.018 (1.001-1.035) Urine Protein Negative (Negative) Urine Ketones Negative (Negative) Urine Blood Negative /uL (Negative) Urine Nitrite Negative (Negative) Urine Bilirubin Negative (Negative) Urine Urobilinogen Normal mg/dL (Negative) Urine Leukocyte Esterase Negative /uL (Negative) Urine RBC 10 /hpf (0 - 3) Urine Microscopic WBC 1 /HPF (0-3) Urine Squamous Epithelial Cells Few /hpf (<5) Urine Bacteria None seen /hpf (None Seen) Urine Hyaline Casts Few /lpf (0 - 2) Urine Mucus Few (None Seen) Urine Glucose Normal mg/dL (Normal) Microbiology Microbiology Date/Time Source Procedure Growth Status 10/30/24 18:30 Nose MRSA Screen - Final Methicillin Resistant S.aureus Complete Labs and/or images reviewed: Labs reviewed by me, Image(s) reviewed by me Assessment/Plan Assessment/Plan Impression: -chronic neck and back pain -cachexia -left hand fracture,? -pain seeking behavior with chronic narcotic use -encephalopathy Plan: Events: Events overnight. Refusing treatments. Ammonia level improved. -continue lactulose -Social service consultation for discharge placement -Pain management -PT evaluation Total time spent with patient discussing and formulating plan of care: 35 minutes. This medical document was created using an electronic medical record system with [employer] dictation system. Although this document has been carefully reviewed, there may still be some phonetic and typographical errors. These areas are purely typographical due to imperfections of the software programs, and do not reflect any compromise in the patient's medical care. Plan discussed with: Patient, Other (RN) Date of Service: Nov 01, 2024 Billing Provider: NORBERTO HURT NP Common Visit Codes: [id number] INP/OBS CARE(HIGH) NORBERTO HURT NP Nov 01, 2024 09:27
[2024-11-02 01:00] VITALS: BP 103/55; PULSE 74; RESP 18; TEMP 98.2; O2SAT 96
[2024-11-02 05:00] VITALS: BP 118/59; PULSE 81; RESP 18; TEMP 97.9; O2SAT 97
[2024-11-02 08:29] VITALS: RESP 16; O2SAT 95
[2024-11-02 09:00] VITALS: BP 132/74; PULSE 70; RESP 17; TEMP 97.9; O2SAT 96
[2024-11-02 13:00] VITALS: BP 121/70; PULSE 85; RESP 18; TEMP 97.3; O2SAT 96
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
[2024-11-02 17:27] VITALS: BP 124/63; PULSE 63; RESP 16; TEMP 98; O2SAT 95
== END 2024-11-02 19:03 | DRG 552 ==
LOC: ER 23:55 → EDBD 23:55 → OVERFLOW 10-24 08:14 → WEST WING 10-24 18:52 → EAST 10-26 17:25
PROVIDERS: ADMIT Nurse Practitioner Acute Care; ATTEND Nurse Practitioner Acute Care
DX: M54.89 Other dorsalgia (principal); R64 Cachexia; K76.82 Hepatic encephalopathy; M54.2 Cervicalgia; D69.6 Thrombocytopenia, unspecified; D64.9 Anemia, unspecified; F10.10 Alcohol abuse, uncomplicated; G89.29 Other chronic pain; K74.60 Unspecified cirrhosis of liver; S62.92XA Unspecified fracture of left hand, initial encounter for closed fracture; Z99.3 Dependence on wheelchair; Z96.643 Presence of artificial hip joint, bilateral; Z88.3 Allergy status to other anti-infective agents; Z68.24 Body mass index [BMI] 24.0-24.9, adult; Z79.899 Other long term (current) drug therapy; Z88.6 Allergy status to analgesic agent; Z79.891 Long term (current) use of opiate analgesic; X58.XXXA Exposure to other specified factors, initial encounter; Y93.89 Activity, other specified; Y92.89 Other specified places as the place of occurrence of the external cause; Y99.8 Other external cause status
CPT/HCPCS: 36415; 80048; 80053; 80074; 80307; 81001; 82140; 82247; 83690; 84075; 84155; 84450; 84460; 85025; 85610; 87081; 97110; 97116; 97163; 97530; G0378